=== PATIENT | male | born 1955 | race American Indian/Alaskan Native ===

== ENCOUNTER 2017-06-18 14:39 | Emergency (ER) | payer MEDICAID ==
[2017-06-18 14:52] VITALS: RESP 16
--- NOTE | 2017-06-18 15:25 | EDPHY ---
H & P Stated Complaint: COLD 3 WEEKS, CYST R HIP - Personal History Current Tetanus Diphtheria and Acellular Pertussis (TDAP): Yes Tetanus Vaccine Date: <10 years - Medical/Surgical History Hx Asthma: No Hx Chronic Respiratory Disease: No Hx Diabetes: Yes Hx Cardiac Disease: No Hx Renal Disease: No Hx Cirrhosis: No Hx Alcoholism: No Hx HIV/AIDS: No Hx Splenectomy or Spleen Trauma: No Other PMH: DMII (non-insulin) - Social History Smoking Status: Light smoker HPI/ROS: CHIEF COMPLAINT: Cough HISTORY OF PRESENT ILLNESS: This is a 62-year-old type 2 diabetic who presents with 1 month of cough. He was in [place] when this began. He states that he caught a "head cold ". This believes that his cold is now in his chest. He was treated with a medication while in [place]; is not sure what the medication was, but he did not improve. He states that his throat and mid chest feel "raw ". He has had subjective low-grade fevers. Initially his cough was productive and persistent, it has improved on both counts. He denies angel chest pain. He does not feel short of breath. He has not had a flu shot this year. In addition he notes an area that is tender and swollen on is right hip. He has had what sounds like an abscess there before. He had his wallet in that region while he was traveling. He has not been aware of any drainage from that area. REVIEW OF SYSTEMS: A ten point review of systems was performed and is negative with the exception of the items mentioned in the HPI. Past medical history: Type 2 diabetes Social history: Megan Williamson. He smokes at least 1/2 pack of cigarettes daily. He does not use alcohol. No illicit drugs. He receives his medical care at the . General Appearance: Alert. Vital signs reviewed. Blood pressure 144/81, heart rate 103. Eyes: Pupils equal and round, no conjunctival injection, no discharge. Anicteric. ENT, Mouth: Mucous membranes are moist, no oropharyngeal erythema or edema. Neck: No lymphadenopathy, supple. Respiratory: Lungs are clear to auscultation; no wheezes, rales, or rhonchi. Cardiovascular: Not tachycardic at the time of my exam, regular rate and rhythm ,; no murmur, rub, or gallop. Gastrointestinal: Abdomen is soft and nontender, no masses or organomegaly, bowel sounds normal. Skin: Warm and dry, no rashes on exposed skin, normal color. Back: Nontender to palpation over the thoracolumbar spine. No CVAT. Extremities: No lower extremity edema, no calf tenderness or swelling. There is a 2 cm circular area of erythema and flaking skin over the right hip with mild fluctuance. No purulent drainage. FAROM of right hip. Neurological: Alert and oriented. Moving all four extremities easily and equally. Psychiatric: Normal affect. (Ju Landon) Constitutional: Initial Vital Signs Temperature (C) 37.5 C 06/18/17 14:49 Heart Rate 103 H 06/18/17 14:49 Respiratory Rate 16 06/18/17 14:49 Blood Pressure 144/81 H 06/18/17 14:49 O2 Sat (%) 97 06/18/17 14:49 O2 Delivery Mode Room Air Allergies/Adverse Reactions: No Known Allergies Allergy (Unverified 06/18/17 14:52) Home Medications: Medication Instructions Recorded Glyburide 02/22/16 Metformin HCl 02/22/16 AZITHROMYCIN [Z-PACK] 250 mg PO DAILY #6 tab 06/18/17 Albuterol [Proventil Inhaler HFA 1 - 2 puffs IH Q4 #1 mdi 06/18/17 (*)] Medical Decision Making Procedures: I was asked by Dr. Ju Landon to perform incision and drainage of abscess to right hip. Procedure: Abscess drainage. The patient's abscess was located on the right hip. Risks, benefits, alternatives discussed with the patient and consent obtained. The abscess was incised with a #11 blade and purulent drainage was expressed. Irrigated. The patient tolerated the procedure well. The procedure was performed by myself. Wound culture was sent. (Rosy Lee) ED Course/Re-evaluation: Two-view chest x-ray reviewed by me. There is no infiltrate. No evidence of pneumonia. He is not short of breath or tachycardic or tachypneic and I do not suspect PE, acute coronary syndrome, or pneumothorax. Nothing to suggest influenza. I believe that he has a bronchitis. I plan to discharge him with albuterol meter dose inhaler and a prescription for azithromycin. He is a smoker and smoking cessation has been counseled. Blood pressure was high on arrival, improved at discharge. However I am recommending that he have his blood pressure checked by his primary care physician within the month. Right hip abscess incised and drained by physician administrative assistant data entry. Antibiotics should not be needed for this, as purulence has been drained. (Ju Landon) - Data Points Microbiology Results: MICROBIOLOGY 06/18/17 16:08 Hip - Swab Gram Stain - Final 06/18/17 16:08 Hip - Swab Wound Culture - Final Staphylococcus Lugdunensis Departure - Departure Disposition: Home, Routine, Self-Care Clinical Impression: Bronchitis, Abscess Condition: Good Instructions: Acute Bronchitis (ED), Abscess (ED) Additional Instructions: Use the albuterol inhaler four times daily while you have a cough. This would be a good time to quit smoking. Take the antibiotics daily for the next five days (two pills first dose, then one pill daily until gone.). The infected area on your hip should heal, now that it has been drained. Watch that area closely for any worsening. Follow-up the [facility]. I am referring you to local primary care provider, in case you wish to establish care [facility]. Referrals: Makenna Mark DO [Doctor of Osteopathy] - As per Instructions Prescriptions: Albuterol [Proventil Inhaler HFA (*)] 1 - 2 puffs IH Q4 #1 mdi AZITHROMYCIN [Z-PACK] 250 mg PO DAILY #6 tab
[2017-06-18 17:18] VITALS: BP 127/86; PULSE 87; TEMP 98.7; O2SAT 98
== END 2017-06-18 17:17 | disposition home or self-care (01) ==
PROC: 0H9HXZZ Drainage of Right Upper Leg Skin, External Approach (ICD-10-PCS; principal; 2017-06-18)
DX: J20.9 Acute bronchitis, unspecified (principal); L02.415 Cutaneous abscess of right lower limb; E11.9 Type 2 diabetes mellitus without complications; F17.200 Nicotine dependence, unspecified, uncomplicated; Z79.84 Long term (current) use of oral hypoglycemic drugs

== ENCOUNTER 2017-12-20 20:00 | Inpatient (IN) | payer MEDICAID ==
[2017-12-20] MEDS ORDERED: NS 1,000 ML IV ONE (20:59)
[2017-12-20] MEDS ORDERED: ONDANSETRON 4 MG/2 ML VIAL IVP ONE (21:02)
[2017-12-20] MEDS ORDERED: HYDROmorphONE/DILAUDID 2 MG/ML INJ IVP ONE (21:02)
--- NOTE | 2017-12-20 21:06 | EDPHY ---
H & P Stated Complaint: LUQ abd pain Time Seen by Provider: 12/20/17 20:52 HPI/ROS: CHIEF COMPLAINT: Right upper quadrant pain HISTORY OF PRESENT ILLNESS: The patient is a 62-year-old man who comes to the emergency department complaining of right upper quadrant pain that has been persistent and worsening over the last couple of months. He states that at 1st he thought it was a pulled rib and he had several x-rays that showed normal ribs and lungs. He then had a CT scan of the area 2 weeks ago at the [place] and was told that he had a single gallstone and emphysematous changes. He also reports history of tuberculosis of the liver treated in the . He denies alcohol use for over 20 years. He does not have any history of abdominal surgeries. The pain is not worse with deep inspiration. It is tender to palpation. No fever. REVIEW OF SYSTEMS: Constitutional: denies: chills, fever, recent illness, recent injury EENTM: denies: blurred vision, double vision, nose congestion Respiratory: denies: cough, shortness of breath Cardiac: denies: chest pain, irregular heart rate, lightheadedness, palpitations Gastrointestinal/Abdominal: denies: abdominal pain, diarrhea, nausea, vomiting, blood streaked stools Genitourinary: denies: dysuria, frequency, hematuria, pain Musculoskeletal: denies: joint pain, muscle pain Skin: denies: lesions, rash, jaundice, bruising Neurological: denies: headache, numbness, paresthesia, tingling, dizziness, weakness Hematologic/Lymphatic: denies: blood clots, easy bleeding, easy bruising Immunologic/allergic: denies: HIV/AIDS, transplant EXAM: GENERAL: Well-appearing, well-nourished and in no acute distress. HEAD: Atraumatic, normocephalic. EYES: Pupils equal round and reactive to light, extraocular movements intact, sclera anicteric, conjunctiva are normal. ENT: TMs normal, nares patent, oropharynx clear without exudates. Moist mucous membranes. NECK: Normal range of motion, supple without lymphadenopathy or JVD. LUNGS: Breath sounds clear to auscultation bilaterally and equal. No wheezes rales or rhonchi. HEART: Regular rate and rhythm without murmurs, rubs or gallops. ABDOMEN: Mild epigastric and right upper quadrant tenderness, negative Lee sign BACK: No CVA tenderness, no spinal tenderness, step-offs or deformities EXTREMITIES: Normal range of motion, no pitting or edema. No clubbing or cyanosis. NEUROLOGICAL: Cranial nerves II through XII grossly intact. Normal speech, normal gait. 5/5 strength, normal movement in all extremities, normal sensation PSYCH: Normal mood, normal affect. SKIN: Warm, dry, normal turgor, no visible rashes or lesions. Source: Patient Exam Limitations: No limitations - Personal History Current Tetanus/Diphtheria Vaccine: Yes Current Tetanus Diphtheria and Acellular Pertussis (TDAP): Yes Tetanus Vaccine Date: <10 years - Medical/Surgical History Hx Asthma: No Hx Chronic Respiratory Disease: No Hx Diabetes: Yes Hx Cardiac Disease: No Hx Renal Disease: No Hx Cirrhosis: No Hx Alcoholism: No Hx HIV/AIDS: No Hx Splenectomy or Spleen Trauma: No Other PMH: DMII (non-insulin), TB. - Social History Smoking Status: Light smoker Alcohol Use: Sober Drug Use: None Constitutional: Initial Vital Signs Temperature (C) 36.6 C 12/20/17 20:23 Heart Rate 108 H 12/20/17 20:23 Respiratory Rate 18 12/20/17 20:23 Blood Pressure 151/89 H 12/20/17 20:23 O2 Sat (%) 97 12/20/17 20:23 O2 Delivery Mode Room Air Allergies/Adverse Reactions: No Known Allergies Allergy (Unverified 06/18/17 14:52) Home Medications: Medication Instructions Recorded Glyburide 02/22/16 Metformin HCl 02/22/16 Albuterol [Proventil Inhaler HFA 1 - 2 puffs IH Q4 #1 mdi 06/18/17 (*)] Lisinopril 12/20/17 Medical Decision Making - Diagnostics EKG Interpretation: An EKG obtained and was read and documented in trace view. Please see trace view for full reading and report. Sinus rhythm, no acute ischemic changes Imaging Results: Imaging Impressions Abdomen Ultrasound 12/20/17 20:59 Impression: 1. Enlarged common bile duct measuring 0.8 cm. The distal duct and pancreatic head are obscured. 2. Cholelithiasis. 3. Hepatomegaly. 4. Hepatic steatosis. Dr. Reynoso discussed these findings by telephone with JACKY GMOEZ at 2254 hours on 12/20/2017. Imaging: Discussed imaging studies w/ call out clerk Radiologist ED Course/Re-evaluation: 10:50 p.m. I discussed the case with Dr. Abram Sommers who will plan to operate in the morning to remove the patient's gallbladder because he is symptomatic. We discussed the patient's glucose is well and he recommends admission to the hospitalist service and he will consult. 11:00 p.m. I have paged hospital service. Differential Diagnosis: Partial list of the Differential diagnosis considered include but were not limited to; cholelithiasis, cholecystitis, hyperglycemia and although unlikely based on the history and physical exam, I also considered DKA, gastritis, hepatitis, peptic ulcer disease. - Data Points Laboratory Results: Laboratory Results 12/20/17 21:28 12/20/17 21:28 12/20/17 12/20/17 21:28 21:28 WBC 6.81 10^3/uL 10^3/uL (3.80-9.50) RBC 5.12 10^6/uL 10^6/uL (4.40-6.38) Hgb 15.1 g/dL g/dL (13.7-17.5) Hct 44.5 % % (40.0-51.0) MCV 86.9 fL fL (81.5-99.8) MCH 29.5 pg pg (27.9-34.1) MCHC 33.9 g/dL g/dL (32.4-36.7) RDW 13.7 % % (11.5-15.2) Plt Count 201 10^3/uL 10^3/uL (150-400) MPV 8.5 fL L fL (8.7-11.7) Neut % (Auto) 62.0 % % (39.3-74.2) Lymph % (Auto) 26.3 % % (15.0-45.0) [place] % (Auto) 7.6 % % (4.5-13.0) Eos % (Auto) 3.1 % % (0.6-7.6) Baso % (Auto) 0.7 % % (0.3-1.7) Nucleat RBC Rel Count 0.0 % % (0.0-0.2) Absolute Neuts (auto) 4.22 10^3/uL 10^3/uL (1.70-6.50) Absolute Lymphs (auto) 1.79 10^3/uL 10^3/uL (1.00-3.00) Absolute Monos (auto) 0.52 10^3/uL 10^3/uL (0.30-0.80) Absolute Eos (auto) 0.21 10^3/uL 10^3/uL (0.03-0.40) Absolute Basos (auto) 0.05 10^3/uL 10^3/uL (0.02-0.10) Absolute Nucleated RBC 0.00 10^3/uL 10^3/uL (0-0.01) Immature Gran % 0.3 % % (0.0-1.1) Immature Gran # 0.02 10^3/uL 10^3/uL (0.00-0.10) Sodium 132 mEq/L L mEq/L (135-145) Potassium 4.4 mEq/L mEq/L (3.5-5.2) Chloride 99 mEq/L mEq/L (97-110) Carbon Dioxide 23 mEq/l mEq/l (22-31) Anion Gap 10 mEq/L mEq/L (8-16) BUN 20 mg/dL mg/dL (7-23) Creatinine 0.9 mg/dL mg/dL (0.7-1.3) Estimated GFR > 60 Glucose 393 mg/dL H mg/dL (70-100) Calcium 9.0 mg/dL mg/dL (8.5-10.4) Total Bilirubin 0.5 mg/dL mg/dL (0.1-1.4) Conjugated Bilirubin 0.5 mg/dL mg/dL (0.0-0.5) Unconjugated Bilirubin 0.0 mg/dL mg/dL (0.0-1.1) AST 21 IU/L IU/L (17-59) ALT 37 IU/L IU/L (21-72) Alkaline Phosphatase 121 IU/L IU/L (38-126) Total Protein 7.1 g/dL g/dL (6.3-8.2) Albumin 4.0 g/dL g/dL (3.5-5.0) Lipase 362 IU/L H IU/L (23-300) Medications Given: Discontinued Medications Hydromorphone HCl (Dilaudid) 1 mg IVP EDNOW ONE Stop: 12/20/17 21:03 Last Admin: 12/20/17 21:34 Dose: 1 mg Sodium Chloride (Ns) 1,000 mls @ 0 mls/hr IV EDNOW ONE; Wide Open PRN Reason: Protocol Stop: 12/20/17 21:00 Last Admin: 12/20/17 21:28 Dose: 1,000 mls Insulin Human Regular (Humulin R) 10 unit IVP EDNOW ONE Stop: 12/20/17 22:10 Last Admin: 12/20/17 22:29 Dose: 10 iunits Ondansetron HCl (Zofran) 4 mg IVP EDNOW ONE Stop: 12/20/17 21:03 Last Admin: 12/20/17 21:34 Dose: 4 mg Departure - Departure Disposition: [facility] Acute Clinical Impression: Hyperglycemia Gallstone Qualifiers: Cholecystitis presence: without cholecystitis Biliary obstruction: without biliary obstruction Qualified Code(s): K80.20 - Calculus of gallbladder without cholecystitis without obstruction Condition: Fair
--- NOTE | 2017-12-20 21:28 | CPEKG ---
Heart Rate: 94 RR Interval: 638 P-R Interval: 168 QRSD Interval: 86 QT Interval: 356 QTC Interval: 446 P [place]: 50 QRS [place]: 68 T Wave [place]: 63 EKG Severity - NORMAL ECG - EKG Impression: SINUS RHYTHM Electronically Signed By: Kumar Wahl 20-Dec-2017 21:36:12
[2017-12-20 21:44] LABS: PLATELET COUNT 201 10^3/uL (150-400)
[2017-12-20] MEDS ORDERED: INSULIN REGULAR HUMAN 100 UNIT/ML UNIT IVP ONE (22:09)
[2017-12-20] MEDS ORDERED: ONDANSETRON DISINTEGRATING 4 MG TAB PO PRN (23:08)
[2017-12-20] MEDS ORDERED: ACETAMINOPHEN 325 MG TAB PO PRN (23:08)
[2017-12-20] MEDS ORDERED: ONDANSETRON 4 MG/2 ML VIAL IVP PRN (23:08)
[2017-12-20] MEDS ORDERED: D50W 25 GM/50 ML VIAL IVP PRN (23:10)
[2017-12-21] MEDS ORDERED: cefOXitin SODIUM 2 GM in STERILE WATER INJ 21 ML IV ONE ×2 (00:25→14:38)
--- NOTE | 2017-12-21 00:25 | SOAPPROG ---
SOAP Progress Note Assessment/Plan: Assessment: 62 male with ruq pain and large stones on us/ afebrile/ lfts ok nonicteric chest clear/ cor rr abd soft, mildly tender ruq extrem ok impr biliary colic phx liver bx and TB/ dm nka meds metformin Plan:lap audrey in am/ risks and options fully discussed 12/21/17 00:22 Objective: Vital Signs Temp Pulse Resp BP Pulse Ox 36.6 C 82 20 101/68 94 12/20/17 20:23 12/21/17 00:00 12/21/17 00:00 12/21/17 00:00 12/21/17 00:00 12/19/17 12/20/17 12/21/17 05:59 05:59 05:59 Intake Total 1000 Balance 1000 ICD10 Worksheet Patient Problems: Problems Problem Status Onset Gallstone Acute Hyperglycemia Acute
[2017-12-21] MEDS: D5W 1/2 NS W/ 20 KCl/L 1,000 ML IV SCH ×2 (01:14→12:52)
--- NOTE | 2017-12-21 01:14 | PDGENHP ---
History and Physical - Chief Complaint RUQ pain - History of Present Illness 62 yo M w/ NIDDM and HTN presents with abdominal pain. He has had RUQ for three months. U/S in ED revealed large gallstone. His BG was elevated so he will be admitted to hospitalist service for BG control prior to lap audrey in the morning. He denies any complaints to me after pain medications. His last A1c was about 10 and his usual BG at home runs in the 180-210 range. He manages his DM with oral medications only. History Information - Allergies/Home Medication List Allergies/Adverse Reactions: No Known Allergies Allergy (Unverified 06/18/17 14:52) Home Medications: Glyburide 02/22/16 [Last Taken Unknown] Metformin HCl 02/22/16 [Last Taken Unknown] Lisinopril 12/20/17 [Last Taken Unknown] I have personally reviewed and updated: family history, medical history - Past Medical History diabetes type 2, hypertension - Family History Additional family history: Gallbladder disease - Social History Smoking Status: Light smoker Alcohol Use: Sober Drug Use: None Review of Systems Review of Systems: ROS: 10pt was reviewed & negative except for what was stated in HPI & below Physical Exam Physical Exam: Temp Pulse Resp BP Pulse Ox 36.4 C 85 12 119/72 95 12/21/17 00:28 12/21/17 00:28 12/21/17 00:28 12/21/17 00:28 12/21/17 00:28 Constitutional: no apparent distress, not in pain Eyes: PERRL, EOMI Ears, Nose, Mouth, Throat: moist mucous membranes, no oral mucosal ulcers Cardiovascular: regular rate and rhythym, no murmur, rub, or gallop Respiratory: no respiratory distress, no rales or rhonchi Gastrointestinal: normoactive bowel sounds, tenderness (Mild, RUQ), No cali's sign Skin: warm, normal color Musculoskeletal: full muscle strength, no muscle tenderness Neurologic: AAOx3, CN II-XII Intact Psychiatric: interacting appropriately, not anxious Lab Data & Imaging Review 12/20/17 21:28 12/20/17 21:28 WBC 6.81 10^3/uL (3.80-9.50) 12/20/17 21:28 RBC 5.12 10^6/uL (4.40-6.38) 12/20/17 21: Hgb 15.1 g/dL (13.7-17.5) 12/20/17 21: Hct 44.5 % (40.0-51.0) 12/20/17 21: MCV 86.9 fL (81.5-99.8) 12/20/17 21: MCH 29.5 pg (27.9-34.1) 12/20/17 21: MCHC 33.9 g/dL (32.4-36.7) 12/20/17 21: RDW 13.7 % (11.5-15.2) 12/20/17: Plt Count 201 10^3/uL (150-400) 12/20/17: MPV 8.5 fL (8.7-11.7) L 12/20/17: Neut % (Auto) 62.0 % (39.3-74.2) 12/20/17 21: Lymph % (Auto) 26.3 % (15.0-45.0) 12/20/17 21: [place] % (Auto) 7.6 % (4.5-13.0) 12/20/17: Eos % (Auto) 3.1 % (0.6-7.6) 12/20/17: Baso % (Auto) 0.7 % (0.3-1.7) 12/20/17: Nucleat RBC Rel Count 0.0 % (0.0-0.2) 12/20/17: Absolute Neuts (auto) 4.22 10^3/uL (1.70-6.50) 12/20/17 21: Absolute Lymphs (auto) 1.79 10^3/uL (1.00-3.00) 12/20/17: Absolute Monos (auto) 0.52 10^3/uL (0.30-0.80) 12/20/17 21: Absolute Eos (auto) 0.21 10^3/uL (0.03-0.40) 12/20/17 21: Absolute Basos (auto) 0.05 10^3/uL (0.02-0.10) 12/20/17 21:28 Absolute Nucleated RBC 0.00 10^3/uL (0-0.01) 12/20/17 21:28 Immature Gran % 0.3 % (0.0-1.1) 12/20/17 21:28 Immature Gran # 0.02 10^3/uL (0.00-0.10) 12/20/17 21:28 Sodium 132 mEq/L (135-145) L 12/20/17 21:28 Potassium 4.4 mEq/L (3.5-5.2) 12/20/17 21:28 Chloride 99 mEq/L (97-110) 12/20/17 21:28 Carbon Dioxide 23 mEq/l (22-31) 12/20/17 21:28 Anion Gap 10 mEq/L (8-16) 12/20/17 21:28 BUN 20 mg/dL (7-23) 12/20/17 21:28 Creatinine 0.9 mg/dL (0.7-1.3) 12/20/17 21:28 Estimated GFR > 60 12/20/17 21:28 Glucose 393 mg/dL (70-100) H 12/20/17 21:28 POC Glucose 137 mg/dL (70-100) H 12/21/17 00:26 Calcium 9.0 mg/dL (8.5-10.4) 12/20/17 21:28 Total Bilirubin 0.5 mg/dL (0.1-1.4) 12/20/17 21:28 Conjugated Bilirubin 0.5 mg/dL (0.0-0.5) 12/20/17 21:28 Unconjugated Bilirubin 0.0 mg/dL (0.0-1.1) 12/20/17 21:28 AST 21 IU/L (17-59) 12/20/17 21:28 ALT 37 IU/L (21-72) 12/20/17 21:28 Alkaline Phosphatase 121 IU/L (38-126) 12/20/17 21:28 Total Protein 7.1 g/dL (6.3-8.2) 12/20/17 21:28 Albumin 4.0 g/dL (3.5-5.0) 12/20/17 21:28 Lipase 362 IU/L (23-300) H 12/20/17 21:28 Imaging Review: Imaging Impressions Abdomen Ultrasound 12/20/17 20:59 Impression: 1. Enlarged common bile duct measuring 0.8 cm. The distal duct and pancreatic head are obscured. 2. Cholelithiasis. 3. Hepatomegaly. 4. Hepatic steatosis. Dr. Reynoso discussed these findings by telephone with JACKY GOMEZ at 2254 hours on 12/20/2017. Assessment & Plan Assessment: 62 yo M w/ DM and HTN presents with RUQ pain found to have cholelithiasis. Plan: 1. RUQ pain - Most likely 2/2 cholelithiasis. LFTs unremarkable and patient not displaying any signs of active infection currently (Afebrile w/ normal WBC). - Plan for laparoscopic cholecystectomy in the morning - NPO @ [place] - Surgery service following 2. NIDDM - Uncontrolled in the ED after patient drank a Dr. Bartlett. BG now WNL after 10 units of regular insulin. On metformin and glyburide as outpatient. - Continue standard SSI while inpatient 3. HTN - Continue home medications Diet - NPO @ [place] Code - Full Ppx - SCDs Dispo - Admit under observation status
[2017-12-21] MEDS: oxyCODONE IR 5 MG TAB PO PRN ×4 (04:53→21:17)
[2017-12-21 05:27] LABS: PLATELET COUNT 195 10^3/uL (150-400)
[2017-12-21] MEDS: INSULIN LISPRO 100 UNIT/ML SC SCH ×3 (08:55→18:05)
--- NOTE | 2017-12-21 09:44 | HOSPPROG ---
Hospitalist Progress Note Assessment/Plan: 62 yo M w dm, symptomatic cholelithiasis cholelithiasis: lap audrey today dm: orals on hold lispro ss a1c pending pain: continue pain meds, including IV tobacco: counselled cessation nicotine patch dispo: inpt Subjective: afebrile. case d/w Tory Isidro, gen surgery PA Objective: Vital Signs Temp Pulse Resp BP Pulse Ox 36.6 C 75 18 150/86 H 97 12/21/17 08:00 12/21/17 08:00 12/21/17 08:00 12/21/17 08:00 12/21/17 08:00 Laboratory Results 12/21/17 04:47 12/21/17 04:47 12/20/17 12/21/17 12/22/17 05:59 05:59 05:59 Intake Total 1515 Balance 1515 - Physical Exam Constitutional: no apparent distress, appears nourished Eyes: PERRL, anicteric sclera Ears, Nose, Mouth, Throat: moist mucous membranes, hearing normal Cardiovascular: regular rate and rhythym, no murmur, rub, or gallop Respiratory: no respiratory distress, no rales or rhonchi Gastrointestinal: normoactive bowel sounds, soft, non-tender abdomen, No cali' s sign Genitourinary: No garrison in urethra Skin: warm, normal color Musculoskeletal: full muscle strength, no muscle tenderness Neurologic: AAOx3, sensation intact bilaterally Psychiatric: interacting appropriately, not anxious Lymph, Heme, Immunologic: no cervical LAD ICD10 Worksheet Patient Problems: Problems Problem Status Onset Gallstone Acute Hyperglycemia Acute
[2017-12-21] MEDS: NICOTINE 14 MG/24 HR PATCH TD SCH (10:04)
--- NOTE | 2017-12-21 10:51 | SOAPPROG ---
SOAP Progress Note Assessment/Plan: Assessment/Plan: 62 Y M DM, +tobacco, cholelithiasis. Lap audrey today. Risks and options discussed. Appreciate medicine input--pt seen with hospitalist. Will ad nicotine patch. Continue NPO. Hold chemical VTE ppx. Pt consented--in chart. S: pain controlled with pain meds. O: alert, nad ctab rrr abd soft, +ruq tenderness 12/21/17 10:49 Objective: Vital Signs Temp Pulse Resp BP Pulse Ox 36.6 C 75 18 150/86 H 97 12/21/17 08:00 12/21/17 08:00 12/21/17 08:00 12/21/17 08:00 12/21/17 08:00 Laboratory Results 12/21/17 04:47 12/21/17 04:47 12/20/17 12/21/17 12/22/17 05:59 05:59 05:59 Intake Total 1515 Balance 1515 ICD10 Worksheet Patient Problems: Problems Problem Status Onset Gallstone Acute Hyperglycemia Acute
--- NOTE | 2017-12-21 10:56 | ASMTCASEMG ---
Living Arrangements What is your living Answers: Alone arrangement? Who do you live with? Type Of Residence What kind of residence do Answers: House you live in? Discharge Plan Comments Coordination Status Comments Notes: Pt is a 62 y/o man admitted for gallstone and hyperglycemia. Pt will most likely d/c independent when medically stable. No therapies ordered at this time. CM available for changes. Plan: Independent Date Signed: 12/21/2017 10:55 AM Electronically Signed By:ONEL Ferrell
[2017-12-21] MEDS ORDERED: LR 1,000 ML IV SCH (13:30)
[2017-12-21] MEDS ORDERED: ceFAZolin 1 GM/5 ML SYR ONE (13:33)
[2017-12-21] MEDS ORDERED: BUPIVACAINE 0.5% 30 ML SDV ONE (13:33)
[2017-12-21] MEDS ORDERED: HEPARIN 1000 UNIT/1 ML MDV ONE (13:34)
--- NOTE | 2017-12-21 13:38 | PDMN ---
Medical Necessity Medical necessity: change to IP; los>2mn for symptomatic cholelithiasis w/ continued pain; requires lap audrey and IV pain medication,. elevated glucose; comorbid HTN, NIDDM; per order and progress note 12/21/17 0996
[2017-12-21] MEDS ORDERED: MIDAZOLAM 2 MG/2 ML VIAL ONE (14:31)
[2017-12-21] MEDS ORDERED: PROPOFOL 200 MG/20 ML VIAL ONE (14:34)
[2017-12-21] MEDS ORDERED: fentaNYL 100 MCG/2 ML INJ ONE ×3 (14:34→15:13)
[2017-12-21] MEDS ORDERED: ROCURONIUM 50 MG/5 ML VIAL ONE (14:35)
[2017-12-21] MEDS ORDERED: ONDANSETRON 4 MG/2 ML VIAL ONE (14:35)
[2017-12-21] MEDS ORDERED: KETOROLAC 30 MG/1 ML SDV ONE (14:35)
[2017-12-21] MEDS ORDERED: SUGAMMADEX SODIUM 200 MG/2 ML VIAL IVP ONE (14:35)
[2017-12-21] MEDS ORDERED: MIDAZOLAM 2 MG/2 ML VIAL IVP ONE (14:56)
[2017-12-21] MEDS ORDERED: ceFAZolin 1 GM VIAL ONE ×2 (14:59)
--- NOTE | 2017-12-21 15:03 | PDANEPAE ---
ANE History of Present Illness cholelithiasis ANE Past Medical History - Cardiovascular History Hx Hypertension: Yes Hx Arrhythmias: No Hx Chest Pain: No Hx Coronary Artery / Peripheral Vascular Disease: No Hx CHF / Valvular Disease: No Hx Palpitations: No - Pulmonary History Hx COPD: No Hx Asthma/Reactive Airway Disease: No Hx Recent Upper Respiratory Infection: No Hx Oxygen in Use at Home: No Hx Sleep Apnea: No Sleep Apnea Screening Result - Last Documented: Positive - Endocrine History Hx Diabetes: Yes Hypothyroid: No Hyperthyroid: No Obesity: no ANE Review of Systems Review of Systems: - Exercise capacity Exercise capacity: >=4 METS ANE Patient History - Allergies Allergies/Adverse Reactions: No Known Allergies Allergy (Unverified 06/18/17 14:52) - Home Medications Home medications: home medication list seen and reviewed Home Medications: metFORMIN HCL [Glucophage 1000 mg] 1,000 mg PO BIDMEAL 02/22/16 [Last Taken 3 Days Ago ~12/18/17] Cholecalciferol Vit D3 [Vitamin D3 (*)] 1,000 units PO DAILY 12/21/17 [Last Taken Unknown] Gabapentin [Neurontin 300 MG (*)] 300 mg PO TID 12/21/17 [Last Taken 12/20/17] - NPO status NPO Since - Liquids (Date): 12/21/17 NPO Since - Liquids (Time): 01:30 NPO Since - Solids (Date): 12/20/17 NPO Since - Solids (Time): 18:00 - Anes Hx Anes Hx: no prior problems - Smoking Hx Smoking Status: Light smoker - Alcohol Use Alcohol Use: Sober ANE Labs/Vital Signs - Labs Result Diagrams: 12/21/17 04:47 12/21/17 04:47 - Vital Signs Blood Pressure: 127/81 Heart Rate: 84 Respiratory Rate: 18 O2 Sat (%): 94 Height: 182.88 cm Weight: 70.6 kg ANE Physical Exam - Airway Neck exam: FROM Mallampati Score: Class 2 Mouth exam: dentures - Pulmonary Pulmonary: no respiratory distress - Cardiovascular Cardiovascular: regular rate and rhythym - ASA Status ASA Status: II ANE Anesthesia Plan Anesthesia Plan: general endotracheal anesthesia Urgent/Emergent Case: Roro jay completed preop but documented later for safe timely pt care
[2017-12-21] MEDS ORDERED: HYDROCODONE/APAP 5/325 TAB PO PRN (15:04)
[2017-12-21] MEDS ORDERED: ALBUTEROL 3 ML DEYVIAL IH PRN (15:04)
[2017-12-21] MEDS ORDERED: epHEDrine SULFATE 10 MG/ML SYR IVP PRN (15:04)
[2017-12-21] MEDS ORDERED: LABETALOL HCL 5 MG/ML 20 ML MDV IVP PRN (15:04)
[2017-12-21] MEDS ORDERED: oxyCODONE IR 5 MG TAB PO PRN (15:04)
[2017-12-21] MEDS ORDERED: HYDROmorphONE/DILAUDID 2 MG/ML INJ IVP PRN (15:04)
[2017-12-21] MEDS ORDERED: fentaNYL 100 MCG/2 ML INJ IVP PRN (15:04)
[2017-12-21] MEDS ORDERED: NALOXONE HCL 0.4 MG/ML INJ IVP PRN (15:04)
[2017-12-21] MEDS ORDERED: PHENYLEPHRINE HCL 100 MCG/ML SYR IVP PRN (15:04)
[2017-12-21] MEDS ORDERED: PROMETHAZINE HCL 25 MG/ML INJ IVP PRN (15:04)
[2017-12-21] MEDS ORDERED: ACETAMINOPHEN 500 MG TAB PO PRN (15:04)
[2017-12-21] MEDS ORDERED: ONDANSETRON 4 MG/2 ML VIAL IVP PRN (15:04)
--- NOTE | 2017-12-21 15:06 | POSTANESTH ---
Post Anesthetic Evaluation Cardiovascular Status: Normal, Stable Respiratory Status: Normal, Stable Level of Consciousness/Mental Status: Can Participate in Eval Pain Control: Adequate, Prn Tx Ordered Nausea/Vomiting Control: Adequate, Prn Tx Ordered Complications Possibly Related to Anesthesia: None Noted
[2017-12-21] MEDS ORDERED: LABETALOL HCL 5 MG/ML 20 ML MDV ONE (15:16)
[2017-12-21] MEDS ORDERED: HYDROmorphONE/DILAUDID 1 MG/ML INJ IVP PRN (15:44)
--- NOTE | 2017-12-21 16:52 | GOP ---
[f rep st] OPERATIVE REPORT DATE OF OPERATION: 12/21/2017 SURGEON: Curly Sommers MD SILVER LAP MACHINE TENDER: ANUPAM Ellis. ANESTHESIOLOGIST: Dr. Markham. PREOPERATIVE DIAGNOSIS: Symptomatic gallstones. POSTOPERATIVE DIAGNOSIS: Symptomatic gallstones. PROCEDURE PERFORMED: Laparoscopic cholecystectomy. FINDINGS: Patient had large gallstones with obstruction of the outlet of the gallbladder, and small ducts. He had a hydrops of the gallbladder, some minor adhesions to the gallbladder. DESCRIPTION OF PROCEDURE: The patient was taken to the operating room where he received satisfactory general endotracheal anesthesia. He was prepped and draped in usual sterile fashion in the supine p osition. An infraumbilical incision was made. A Veress needle inserted. Pneumoperitoneum was estab lished. Trocar was introduced. Laparoscope introduced. Good visualization was obtained. Two other trocars were placed in the upper abdomen under direct vision. The gallbladder was elevated up. It was quite thickened and hard to grasp. The adhesions were taken down. The cystic triangle was caref ully exposed. The cystic duct and cystic artery were multiply hemoclipped after being carefully diss ected and a clear view was obtained. They were multiple hemoclipped and divided with care to avoid i njury to the common bile duct. The peritoneum of the gallbladder was incised the gallbladder dissect ed free from the bed and hepatic fossa, extracted through the upper midline port site. Hemostasis wa s thoroughly obtained. Some Agnieszka powder was placed in the gallbladder bed for hemostatic effect. The wound was irrigated. Trocars removed under direct vision. Trocar sites were closed with 0 Vicry l for the fascia, 4-0 Monocryl subcuticular stitch for the skin. All layers infiltrated with 0.5% Ma rcaine. Blood loss negligible. He was taken to recovery room in good condition. /[id number]/MODL
[2017-12-21] MEDS: GABAPENTIN 300 MG CAP PO SCH ×2 (18:07→20:30)
[2017-12-22] MEDS: oxyCODONE IR 5 MG TAB PO PRN ×5 (00:21→14:45)
--- NOTE | 2017-12-22 09:48 | SOAPPROG ---
SOAP Progress Note Assessment/Plan: Assessment/Plan: 62 Y M DM, +tobacco, cholelithiasis. s/p lap audrey, POD#1. If tolerates diet and pain gets under control, then no CI to d/c from a surgical standpoint. Gallbladder was inflamed with stones, but don't see need for further abx as an outpatient. Epigastric incisional pain to be expected-- larger incision with more manipulation, where the gallbladder is taken out from. No sign of dehiscence on exam. Can re-examine if continues to have pain after pain meds given. Will add info to d/c plan and continue to follow. S: hasn't had pain meds yet this am and had a lot of pain at epigastric incision when getting oob. Taking meds now. Says he has not eaten yet. Passing gas. No N/V. O: alert, nad no jaundice no wob rrr abd soft, +incisional tenderness. no incisional bulges but not able to tolerate po rian maneuvers and incisional pressure this am 12/22/17 09:37 Objective: Vital Signs Temp Pulse Resp BP Pulse Ox 36.6 C 81 18 157/99 H 99 12/22/17 07:45 12/22/17 07:45 12/22/17 07:45 12/22/17 07:45 12/22/17 07:45 Laboratory Results 12/21/17 04:47 12/21/17 04:47 12/21/17 12/22/17 12/23/17 05:59 05:59 05:59 Intake Total 1515 2650 Output Total 1035 Balance 1515 1615 ICD10 Worksheet Patient Problems: Problems Problem Status Onset Gallstone Acute Hyperglycemia Acute
[2017-12-22] MEDS: NICOTINE 14 MG/24 HR PATCH TD SCH (10:50)
[2017-12-22] MEDS: GABAPENTIN 300 MG CAP PO SCH ×2 (11:20→15:51)
--- NOTE | 2017-12-22 11:34 | HOSPPROG ---
Hospitalist Progress Note Assessment/Plan: 62 yo M w dm, symptomatic cholelithiasis cholelithiasis: lap audrey yesterday tolerating orals dm: orals on hold lispro ss a1c pending pain: continue pain meds, including IV tobacco: counselled cessation nicotine patch dispo: home if pain controlled Subjective: c/o abd wall pain Objective: Vital Signs Temp Pulse Resp BP Pulse Ox 36.6 C 87 16 128/72 H 95 12/22/17 11:21 12/22/17 11:21 12/22/17 11:21 12/22/17 11:21 12/22/17 11:21 Laboratory Results 12/21/17 04:47 12/21/17 04:47 12/21/17 12/22/17 12/23/17 05:59 05:59 05:59 Intake Total 1515 2650 Output Total 1035 Balance 1515 1615 - Physical Exam Constitutional: no apparent distress, appears nourished Eyes: PERRL, anicteric sclera Ears, Nose, Mouth, Throat: moist mucous membranes, hearing normal Cardiovascular: regular rate and rhythym, no murmur, rub, or gallop Respiratory: no respiratory distress, no rales or rhonchi Gastrointestinal: normoactive bowel sounds, soft, non-tender abdomen Genitourinary: no bladder tenderness, No garrison in urethra Skin: warm, normal color Musculoskeletal: full muscle strength Neurologic: AAOx3 ICD10 Worksheet Patient Problems: Problems Problem Status Onset Gallstone Acute Hyperglycemia Acute
[2017-12-22] MEDS: INSULIN LISPRO 100 UNIT/ML SC SCH ×2 (12:32→13:10)
[2017-12-22 15:21] VITALS: BP 151/84
[2017-12-22] MEDS ORDERED: HYDROmorphone HCL/NS 0.5 MG/ML SYR IVP PRN (16:00)
--- NOTE | 2017-12-23 03:33 | GDS ---
[f rep st] DISCHARGE SUMMARY DISCHARGE DIAGNOSES: 1. Poorly-controlled diabetes. 2. Hydropic gallbladder with symptomatic cholelithiasis, status post surgery. 3. Smoking, tobacco use. HOSPITAL COURSE: Please see admission history and physical by Dr. cR Dan. The patient prese nted with abdominal pain. He had abdominal ultrasound showing gallstones. He is markedly hyperglyce home with blood sugars in the 300s, which responded well to insulin therapy. Hemoglobin A1c returned at 11. The patient went to the operating room with uncomplicated gallbladder removal. He is dischar [facility] home. /[id number]/MODL
== END 2017-12-22 18:12 | disposition home or self-care (01) | DRG 263 ==
LOC: OBSVTOIN 23:04 → F3E 12-21 00:17
PROVIDERS: ADMIT Student in an Organized Health Care Education/Training Program; ATTEND Student in an Organized Health Care Education/Training Program
PROC: 0FT44ZZ Resection of Gallbladder, Percutaneous Endoscopic Approach (ICD-10-PCS; principal; 2017-12-21 14:45)
DX: K80.10 Calculus of gallbladder with chronic cholecystitis without obstruction (principal); E11.65 Type 2 diabetes mellitus with hyperglycemia; I10 Essential (primary) hypertension; Z72.0 Tobacco use
CPT/HCPCS: 96374; G0378; J0690; J0694; J1170; J1815; J1885; J2250; J2405; J2704; J3010

== ENCOUNTER 2018-01-17 13:20 | Emergency (ER) | payer MEDICAID ==
--- NOTE | 2018-01-17 14:13 | EDPHY ---
H & P Stated Complaint: Abd Pain Post Op Source: Patient Exam Limitations: No limitations - Personal History Current Tetanus Diphtheria and Acellular Pertussis (TDAP): Yes Tetanus Vaccine Date: <10 years - Medical/Surgical History Hx Asthma: No Hx Chronic Respiratory Disease: No Hx Diabetes: Yes Hx Cardiac Disease: No Hx Renal Disease: No Hx Cirrhosis: No Hx Alcoholism: No Hx HIV/AIDS: No Hx Splenectomy or Spleen Trauma: No Other PMH: DMII (non-insulin), TB. - Social History Smoking Status: Light smoker Time Seen by Provider: 01/17/18 14:13 HPI/ROS: CHIEF COMPLAINT: Chronic right-sided abdominal pain HISTORY OF PRESENT ILLNESS: The patient presents the ED with complaints of ongoing chronic right-sided abdominal pain. The patient is approximately 1 month status post cholecystectomy for symptomatic cholelithiasis. Patient had been on narcotic pain medications which he stop taking 1 week ago. Patient complains of pain over his abdominal incisions, lower ribs and back. The patient denies pleuritic chest pain. He denies any nausea, vomiting or diarrhea. The pain is worsened with eating. The patient did see his surgeon for follow-up. He was advised to take Tylenol for management of his symptoms. REVIEW OF SYSTEMS: A comprehensive 10 point review of systems is otherwise negative aside from elements mentioned in the history of present illness. (Devon Esqueda) - Physical Exam Exam: General Appearance: Alert, no distress Eyes: Pupils equal and round no pallor or injection ENT, Mouth: Mucous membranes moist Respiratory: There are no retractions, lungs are clear to auscultation, tenderness to palpation lower rib cage Cardiovascular: Regular rate and rhythm Gastrointestinal: Surgical incisions are clean dry and intact, minimal tenderness to palpation noted in the epigastrium Neurological: A&O, normal motor function, normal sensory exam, normal cranial nerves Skin: Warm and dry, no rashes Musculoskeletal: Neck is supple nontender Extremities: symmetrical, full range of motion Psychiatric: Patient is oriented X 3, there is no agitation (Devon Esqueda) Constitutional: Initial Vital Signs Temperature (C) 36.6 C 01/17/18 13:21 Heart Rate 115 H 01/17/18 13:21 Respiratory Rate 18 01/17/18 13:21 Blood Pressure 126/83 H 01/17/18 13:21 O2 Sat (%) 99 01/17/18 13:21 O2 Delivery Mode Room Air Allergies/Adverse Reactions: No Known Allergies Allergy (Unverified 06/18/17 14:52) Home Medications: Medication Instructions Recorded metFORMIN HCL [Glucophage 1000 mg] 1,000 mg PO BIDMEAL 02/22/16 Cholecalciferol Vit D3 [Vitamin D3 1,000 units PO DAILY 12/21/17 (*)] Gabapentin [Neurontin 300 MG (*)] 300 mg PO TID 12/21/17 Ondansetron Odt [Zofran Odt 4 mg 4 mg PO Q4HRS PRN #20 tab 12/22/17 (*)] oxyCODONE IR [Oxycodone Ir (*)] 5 - 10 mg PO Q3HRS PRN #20 tab 12/22/17 Hydrocodone/APAP 5/325 [[place] 1 - 2 tab PO Q4H PRN #10 tab 01/17/18 5/325] Medical Decision Making - Diagnostics Imaging Results: Imaging Impressions Abdomen CT 01/17/18 15:17 Impression: 1. Postcholecystectomy with no evidence of postoperative complication. 2. No CT evidence of appendicitis, abscess or bowel obstruction. 3. Mild constipation. Findings were communicated by telephone with Dr. Deleon at 01/17/2018 16:31 ED Course/Re-evaluation: The patient presents to the ED with ongoing pain following cholecystectomy. The patient has both pain in his right upper quadrant as well as right lower rib pain. The patient was noted to be slightly tachycardic. I find his abdominal examination to be benign. Given the patient's recent surgery and tachycardia a D-dimer was checked to evaluate for pulmonary embolism. D-dimer was elevated at 0.64. A CT pulmonary angiogram has been ordered. The patient is noted to have an indeterminately elevated lipase. A CT scan of the abdomen pelvis is also been ordered given his postoperative pain. The remainder of the patient's liver function tests are within normal limits. The patient will be evaluated for pulmonary embolism and intra-abdominal complications from his cholecystectomy. The patient will be turned over to Dr. Bledsoe at shift change pending the CT studies. (Devon Esqueda) 1704: CT scan angiogram of the chest for PE as well as CT scan abdomen pelvis with IV contrast for abdominal pain are unremarkable for acute pathology. Negative for PE or acute inflammatory process in the abdomen. 1705: I did go re-evaluate the patient is resting comfortably. I agreed to give him very limited supply of [place]. I did discussed return precautions with him he understands return emergency room if develops worsening abdominal pain fever vomiting. Blood work and CT scans have been reviewed. He is resting comfortably. He is comfortable going home. Discussed return precautions with him. He understands return emergency room if develops worsening abdominal pain fever vomiting. Limited supply of [place]. (Moustapha Bledsoe) Differential Diagnosis: Differential diagnosis considered includes pulmonary embolism, choledocholithiasis, gastroenteritis, appendicitis, pneumonia, rib fracture ( Devon Esqueda) - Data Points Laboratory Results: Laboratory Results 01/17/18 14:30 01/17/18 14:30 01/17/18 01/17/18 01/17/18 14:40 14:30 14:30 WBC 6.96 10^3/uL 10^3/uL (3.80-9.50) RBC 5.05 10^6/uL 10^6/uL (4.40-6.38) Hgb 14.9 g/dL g/dL (13.7-17.5) POC Hgb 14.3 gm/dL gm/dL (13.7-17.5) Hct 43.7 % % (40.0-51.0) POC Hct 42 % % (40-51) MCV 86.5 fL fL (81.5-99.8) MCH 29.5 pg pg (27.9-34.1) MCHC 34.1 g/dL g/dL (32.4-36.7) RDW 13.4 % % (11.5-15.2) Plt Count 227 10^3/uL 10^3/uL (150-400) MPV 8.4 fL L fL (8.7-11.7) Neut % (Auto) 50.5 % % (39.3-74.2) Lymph % (Auto) 35.1 % % (15.0-45.0) [place] % (Auto) 7.9 % % (4.5-13.0) Eos % (Auto) 5.2 % % (0.6-7.6) Baso % (Auto) 1.0 % % (0.3-1.7) Nucleat RBC Rel Count 0.0 % % (0.0-0.2) Absolute Neuts (auto) 3.52 10^3/uL 10^3/uL (1.70-6.50) Absolute Lymphs (auto) 2.44 10^3/uL 10^3/uL (1.00-3.00) Absolute Monos (auto) 0.55 10^3/uL 10^3/uL (0.30-0.80) Absolute Eos (auto) 0.36 10^3/uL 10^3/uL (0.03-0.40) Absolute Basos (auto) 0.07 10^3/uL 10^3/uL (0.02-0.10) Absolute Nucleated RBC 0.00 10^3/uL 10^3/uL (0-0.01) Immature Gran % 0.3 % % (0.0-1.1) Immature Gran # 0.02 10^3/uL 10^3/uL (0.00-0.10) D-Dimer POC Sodium 138 mEq/L mEq/L (135-145) Sodium 138 mEq/L mEq/L (135-145) POC Potassium 3.9 mEq/L mEq/L (3.3-5.0) Potassium 4.3 mEq/L mEq/L (3.5-5.2) POC Chloride 104 mEq/L mEq/L (97-110) Chloride 102 mEq/L mEq/L (97-110) Carbon Dioxide 21 mEq/l L mEq/l (22-31) Anion Gap 15 mEq/L mEq/L (8-16) POC BUN 23 mg/dL mg/dL (7-23) BUN 23 mg/dL mg/dL (7-23) Creatinine 0.9 mg/dL mg/dL (0.7-1.3) POC Creatinine 0.9 mg/dL mg/dL (0.7-1.3) Estimated GFR > 60 Glucose 124 mg/dL H mg/dL (70-100) POC Glucose 128 mg/dL H mg/dL (70-100) Calcium 9.8 mg/dL mg/dL (8.5-10.4) Total Bilirubin 0.5 mg/dL mg/dL (0.1-1.4) Conjugated Bilirubin 0.5 mg/dL mg/dL (0.0-0.5) Unconjugated Bilirubin 0.0 mg/dL mg/dL (0.0-1.1) AST 23 IU/L IU/L (17-59) ALT 33 IU/L IU/L (21-72) Alkaline Phosphatase 141 IU/L H IU/L (38-126) Total Protein 7.6 g/dL g/dL (6.3-8.2) Albumin 4.2 g/dL g/dL (3.5-5.0) Lipase 411 IU/L H IU/L (23-300) 01/17/18 14:14 WBC RBC Hgb POC Hgb Hct POC Hct MCV MCH MCHC RDW Plt Count MPV Neut % (Auto) Lymph % (Auto) [place] % (Auto) Eos % (Auto) Baso % (Auto) Nucleat RBC Rel Count Absolute Neuts (auto) Absolute Lymphs (auto) Absolute Monos (auto) Absolute Eos (auto) Absolute Basos (auto) Absolute Nucleated RBC Immature Gran % Immature Gran # D-Dimer 0.64 ug/mLFEU H ug/mLFEU (0.00-0.50) POC Sodium Sodium POC Potassium Potassium POC Chloride Chloride Carbon Dioxide Anion Gap POC BUN BUN Creatinine POC Creatinine Estimated GFR Glucose POC Glucose Calcium Total Bilirubin Conjugated Bilirubin Unconjugated Bilirubin AST ALT Alkaline Phosphatase Total Protein Albumin Lipase Medications Given: Discontinued Medications Acetaminophen (Tylenol) 1,000 mg PO EDNOW ONE Stop: 01/17/18 16:35 Last Admin: 01/17/18 16:41 Dose: 1,000 mg Point of Care Test Results: 01/17/18 14:40 POC Sodium 138 POC Potassium 3.9 POC Chloride 104 POC BUN 23 POC Creatinine 0.9 POC Glucose 128 H Departure - Departure Disposition: Home, Routine, Self-Care Clinical Impression: Abdominal pain Qualifiers: Abdominal location: unspecified location Qualified Code(s): R10.9 - Unspecified abdominal pain Condition: Good Instructions: Acute Abdominal Pain (ED) Additional Instructions: 1. Return emergency room if you have worsening abdominal pain fever vomiting. 2. Please follow up with her primary care doctor 3. Limited supply of [place]. Referrals: NONE *PRIMARY CARE P,. [Primary Care Provider] - As per Instructions Prescriptions: Hydrocodone/APAP 5/325 [[place] 5/325] 1 - 2 tab PO Q4H PRN #10 tab PRN Reason: Pain, Moderate
[2018-01-17 14:44] LABS: PLATELET COUNT 227 10^3/uL (150-400)
[2018-01-17] MEDS ORDERED: IOPAMIDOL (ISOVUE 370) 100 ML BTL IV ONE (15:22)
[2018-01-17] MEDS ORDERED: ACETAMINOPHEN 500 MG TAB PO ONE (16:34)
[2018-01-17 17:37] VITALS: BP 124/83
== END 2018-01-17 17:38 | disposition home or self-care (01) ==
DX: G89.18 Other acute postprocedural pain (principal); R10.13 Epigastric pain; E11.9 Type 2 diabetes mellitus without complications; F17.200 Nicotine dependence, unspecified, uncomplicated; Z79.84 Long term (current) use of oral hypoglycemic drugs
CPT/HCPCS: 82947-QW; Q9967

== ENCOUNTER 2018-03-17 13:04 | Emergency (ER) | payer MEDICAID ==
--- NOTE | 2018-03-17 13:32 | EDPHY ---
HPI/HX/ROS/PE/MDM - Data Points Imaging: I viewed and interpreted images myself Narrative: CHIEF COMPLAINT: Ongoing abdominal pain HPI: The patient is a 63 y/o male with a history of diabetes and hypertension arriving with his friends complaining of persistent RUQ pain before and after a cholecystectomy on 12/21/17. He describes months of pain leading up to the cholecystectomy, but has continued to have the same RUQ pain following the surgery. He was on oxycodone after the surgery and is now using Tylenol and ibuprofen for pain without lasting relief. He was admitted at the end of January for the same symptoms after running out of oxycodone. During that admission he preferred to be discharged with one week of narcotics despite encouragement to complete ERCP or CTA to find an etiology for his pain. He describes occasional "stabbing" pain if he "walks too far" or eats "something wrong." His pain improves at rest and at night. He sometimes has an associated back ache. Last episode of vomiting was 3 weeks ago. He denies dark tarry stools. His last follow up with his surgeon, Dr. Sommers, was one month ago. He and his friends at bedside are concerned he has an infection and that he cannot use ibuprofen long- term. Since the pain started 6 months ago, he estimates he has lost approximately 30lbs. REVIEW OF SYSTEMS: Aside from elements discussed in the HPI, a comprehensive 10-point review of systems was reviewed and is negative. PMH: Diabetes type 2, hypertension, recent cholecystectomy 12/21/[address] Sommers SOCIAL HISTORY: Friends at bedside. Lives in [place]. Disabled. Prior medical records reviewed including admission 02/08/18. PHYSICAL EXAM: General:Patient is alert, in no acute distress. ENT:Eyes are normal to inspection. ENT inspection normal. Neck: Normal inspection. Full range of motion. Respiratory:No respiratory distress. Breath sounds normal bilaterally. Cardiovascular: Regular rate and rhythm. Strong peripheral pulses. Normal cap refill. Abdomen:The abdomen has RUQ tenderness to palpation. There are no peritoneal signs. There are normal bowel sounds. Back: Normal to inspection. No tenderness to palpation. Skin: Normal color. No rash. Warm and dry. Extremities: Normal appearance. Full range of motion. Neuro: Oriented x3. Normal motor function. Normal sensory function. (Marcellus Perez) ED Course: This is a 63 y/o male who presents with a 6-month history of chronic RUQ abdominal pain despite cholecystectomy in December. He has RUQ tenderness on exam. Plan for IV, labs, chest x-ray. D-dimer is elevated. 1435: Chest CTA and abdominal CT ordered. 1500: Patient care signed out to Dr. Wahl at shift change pending imaging results. (Marcellus Perez) MDM: 3:50 p.m. the the patient is feeling much better. We discussed his CT and lab results. The after our discussion it seems apparent that he most frequently has these pain episodes after eating fatty meals. Yesterday he ate hot dogs and hamburgers for the holiday. He is now feeling better. I offered admission for ERCP which he declined during his hospitalization in January. He continues to decline this and states that they told him it could cause pancreatitis. He has a nontender abdominal exam right now. We discussed eating less fatty meals and possibly taking bile supplements. I will also refer him to GI. He was also asking for some p.r.n. Vicodin. (Kumar Wahl) - Data Points Imaging Results: Imaging Impressions Chest X-Ray 03/17/18 13:40 Impression: Chronic or recurrent airways disease. No evidence for pneumonia. Abdomen CT 03/17/18 14:34 Impression: 1. No acute intraabdominal process or explanation for right-sided pain. 2. Normal appendix. Moderate constipation. 3. Common bile duct within normal limit for cholecystectomy. Findings discussed with Emergency Department Physician Beverage Host, Marcellus Ramirez PA-C, on March 17, 2018 at 1525. Chest/Thorax CTA 03/17/18 14:34 Impression: 1. No evidence of pulmonary thromboembolic disease. 2. Clear lungs. Chronic mild airways disease, similar to January 2018. Findings discussed with Emergency Department physician assistant chief of police, Marcellus Ramirez PA-C, on March 17, 2018 at 1525. Laboratory Results: Laboratory Results 03/17/18 13:30 03/17/18 13:30 03/17/18 03/17/18 03/17/18 13:46 13:30 13:30 WBC RBC Hgb Hct MCV MCH MCHC RDW Plt Count MPV Neut % (Auto) Lymph % (Auto) [place] % (Auto) Eos % (Auto) Baso % (Auto) Nucleat RBC Rel Count Absolute Neuts (auto) Absolute Lymphs (auto) Absolute Monos (auto) Absolute Eos (auto) Absolute Basos (auto) Absolute Nucleated RBC Immature Gran % Immature Gran # D-Dimer 0.62 ug/mLFEU H ug/mLFEU (0.00-0.50) Sodium 141 mEq/L mEq/L (135-145) Potassium 3.9 mEq/L mEq/L (3.3-5.0) Chloride 104 mEq/L mEq/L (97-110) Carbon Dioxide 23 mEq/l mEq/l (22-31) Anion Gap 14 mEq/L mEq/L (8-16) BUN 18 mg/dL mg/dL (7-23) Creatinine 0.8 mg/dL mg/dL (0.7-1.3) Estimated GFR > 60 Glucose 300 mg/dL H mg/dL (70-100) Calcium 9.5 mg/dL mg/dL (8.5-10.4) Total Bilirubin 0.5 mg/dL mg/dL (0.1-1.4) Conjugated Bilirubin 0.4 mg/dL mg/dL (0.0-0.5) Unconjugated Bilirubin 0.1 mg/dL mg/dL (0.0-1.1) AST 25 IU/L IU/L (17-59) ALT 34 IU/L IU/L (21-72) Alkaline Phosphatase 100 IU/L IU/L (38-126) POC Troponin I 0.01 ng/mL ng/mL (0.00-0.08) Total Protein 6.7 g/dL g/dL (6.3-8.2) Albumin 3.8 g/dL g/dL (3.5-5.0) Lipase 335 IU/L H IU/L (23-300) 03/17/18 13:30 WBC 6.51 10^3/uL 10^3/uL (3.80-9.50) RBC 4.36 10^6/uL L 10^6/uL (4.40-6.38) Hgb 13.2 g/dL L g/dL (13.7-17.5) Hct 39.1 % L % (40.0-51.0) MCV 89.7 fL fL (81.5-99.8) MCH 30.3 pg pg (27.9-34.1) MCHC 33.8 g/dL g/dL (32.4-36.7) RDW 13.5 % % (11.5-15.2) Plt Count 239 10^3/uL 10^3/uL (150-400) MPV 8.4 fL L fL (8.7-11.7) Neut % (Auto) 64.9 % % (39.3-74.2) Lymph % (Auto) 26.3 % % (15.0-45.0) [place] % (Auto) 5.8 % % (4.5-13.0) Eos % (Auto) 2.0 % % (0.6-7.6) Baso % (Auto) 0.8 % % (0.3-1.7) Nucleat RBC Rel Count 0.0 % % (0.0-0.2) Absolute Neuts (auto) 4.23 10^3/uL 10^3/uL (1.70-6.50) Absolute Lymphs (auto) 1.71 10^3/uL 10^3/uL (1.00-3.00) Absolute Monos (auto) 0.38 10^3/uL 10^3/uL (0.30-0.80) Absolute Eos (auto) 0.13 10^3/uL 10^3/uL (0.03-0.40) Absolute Basos (auto) 0.05 10^3/uL 10^3/uL (0.02-0.10) Absolute Nucleated RBC 0.00 10^3/uL 10^3/uL (0-0.01) Immature Gran % 0.2 % % (0.0-1.1) Immature Gran # 0.01 10^3/uL 10^3/uL (0.00-0.10) D-Dimer Sodium Potassium Chloride Carbon Dioxide Anion Gap BUN Creatinine Estimated GFR Glucose Calcium Total Bilirubin Conjugated Bilirubin Unconjugated Bilirubin AST ALT Alkaline Phosphatase POC Troponin I Total Protein Albumin Lipase Point of Care Test Results: Chemistry 03/17/18 13:46 POC Troponin I 0.01 ng/mL ng/mL (0.00-0.08) General Time Seen by Provider: 03/17/18 13:15 Initial Vital Signs: Initial Vital Signs Temperature (C) 36.8 C 03/17/18 13:05 Heart Rate 99 03/17/18 13:05 Respiratory Rate 16 03/17/18 13:05 Blood Pressure 132/82 H 03/17/18 13:05 O2 Sat (%) 95 03/17/18 13:05 O2 Delivery Mode Room Air Allergies/Adverse Reactions: No Known Allergies Allergy (Verified 02/08/18 17:58) Home Medications: Medication Instructions Recorded metFORMIN HCL [Glucophage 1000 mg] 1,000 mg PO BIDMEAL 02/22/16 Cholecalciferol Vit D3 [Vitamin D3 1,000 units PO DAILY 12/21/17 (*)] Gabapentin [Neurontin 300 MG (*)] 300 mg PO BID 12/21/17 Lisinopril [Zestril 10 mg (*)] 10 mg PO BID 02/08/18 Acetaminophen [Tylenol 325mg (*)] 650 mg PO Q6 PRN tab 02/10/18 Polyethylene Glycol 3350 [Miralax 17 gm PO DAILY PRN pkt 02/10/18 17 gm (*)] Sennosides/Docusate Sodium 1 - 2 tab PO BID tab 02/10/18 [Senokot-S] Hydrocodone/APAP 5/325 [[place] 1 - 2 tab PO Q4H PRN #14 tab 03/17/18 5/325 (RX)] Departure - Departure Disposition: Home, Routine, Self-Care Clinical Impression: Epigastric abdominal pain Condition: Fair Instructions: Epigastric Pain (ED) Referrals: NONE *PRIMARY CARE P,. [Primary Care Provider] - As per Instructions Ynoatan Chicas MD [Medical Doctor] - 5-7 days, call for appt. Prescriptions: Hydrocodone/APAP 5/325 [[place] 5/325 (RX)] 1 - 2 tab PO Q4H PRN #14 tab PRN Reason: Pain, Moderate Report Scribed for: Marcellus Perez Report Scribed by: Nataliia Ron Date of Report: 03/17/18 Time of Report: 13:17 Physician Review and Approval Statement: Portions of this note were transcribed by an ED scribe. I personally performed the history, physical exam, and medical decision making; and confirm the accuracy of the information in the transcribed note.
[2018-03-17 13:46] LABS: PLATELET COUNT 239 10^3/uL (150-400)
[2018-03-17] MEDS ORDERED: IOPAMIDOL (ISOVUE 370) 100 ML BTL IV ONE (14:39)
[2018-03-17 16:01] VITALS: BP 125/78
== END 2018-03-17 16:02 | disposition home or self-care (01) ==
LOC: EEVIPCON 13:04
DX: R10.13 Epigastric pain (principal); I10 Essential (primary) hypertension; E11.9 Type 2 diabetes mellitus without complications; Z79.84 Long term (current) use of oral hypoglycemic drugs; Z90.49 Acquired absence of other specified parts of digestive tract
CPT/HCPCS: 84484-PO; Q9967

== ENCOUNTER 2018-05-09 12:54 | Observation (INO) | payer MEDICAID ==
[2018-05-09] MEDS ORDERED: NS 1,000 ML IV ONE ×2 (13:16→13:36)
[2018-05-09 13:25] LABS: PLATELET COUNT 230 10^3/uL (150-400)
--- NOTE | 2018-05-09 13:36 | EDPHY ---
HPI/HX/ROS/PE/MDM Narrative: CHIEF COMPLAINT: "This morning I was trying to black out a bit" HISTORY OF PRESENT ILLNESS: The patient is a 63 y/o male complaining of a near -syncopal event this morning. He describes tunnel vision and feeling like he would pass out while standing today. Upon sitting down symptoms seemed to improve so he then went to shower when symptoms recurred and he had to sit down to avoid passing out. He felt normal yesterday and has been eating and drinking without issue. He denies recent illness or trauma. He is no longer on blood pressure medication. He's had ongoing chronic abdominal pain for several months and was most recently seen here for this on 04/20/18. During that visit labs showed he had a positive H. pylori antibody test and he was discharged on omeprazole, clarithromycin, amoxicillin, and Mylanta. He feels like his abdominal symptoms improved after this treatment course. No fever, chills, chest pain, shortness of breath, palpitations, vomiting, diarrhea, urinary complaints, headache, blood in stool or black stools, testicular pain or swelling. No history of GI bleeds. REVIEW OF SYSTEMS: Aside from elements discussed in the HPI, a comprehensive 10-point review of systems was reviewed and is negative. Patient later reported that he was in a sweat [place] for spiritual ceremony for 4 hr yesterday. 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 Current tobacco use. Vocational Rehabilitation Specialist at bedside. Prior medical records reviewed including ED visits 03/17/18 and 04/20/18 for abdominal pain. VITAL SIGNS: Reviewed by me. BP 79/55. GENERAL: Well-developed, well-nourished, resting comfortably in no respiratory distress. HEENT: Atraumatic. Eyes: No icterus, no injection. Mouth: moist mucous membranes. No erythema or lesions. Neck: supple with no adenopathy. LUNGS: Clear to auscultation bilaterally, no wheezes, rhonchi or rales. CARDIAC: Regular rate and rhythm, no rubs, murmurs or gallops. ABDOMEN: Soft, RUQ tenderness, no guarding or rebound, nondistended, bowel sounds normal. RECTAL: Brown stool, no melena BACK: No CVA tenderness. EXTREMITIES: No trauma. No edema. Range of motion is normal throughout. NEURO: Alert and oriented, grossly nonfocal. SKIN: Warm and dry, no rash. PSYCHIATRIC: Normal mentation, no agitation. Portions of this note were transcribed by a medical payment poster. I personally performed a history, physical exam, medical decision making, and confirmed accuracy of information the transcribed note. ED Course: This is a 63 y/o male with a history of diabetes and chronic abdominal pain who presents with near-syncopal episodes this morning and hypotension here. BP in triage is 74/54. He has RUQ tenderness that is baseline for him and an otherwise unremarkable exam. No melena on rectal exam. Plan for IV, labs, EKG, chest x-ray, 2L IV NS. The 12 lead EKG was interpreted by myself. Sinus tachycardia rate 104. See hard copy and/or "tracemaster" electronic copy for interpretation. Chest x-ray: stable COPD. Creatinine elevated at 2.0. Negative POC Troponin. Occult stool is negative. H& H are normal. Patient has a lactic of 2.3. He has evidence of infection or septicemia. This was not ordered as part of the septicemia workup. Patient did received 2 L of normal saline. Spoke with hospitalist service. Patient will be admitted for ongoing hydration , re-evaluation of his elevated creatinine, and serial troponins. Dr. Esteban accepts admission. MDM: Differential diagnoses for the patient's symptom complex was considered including but not limited to dehydration, anemia, GI bleeding, acute blood loss , sepsis, septic shock. - Data Points Imaging Results: Imaging Impressions Chest X-Ray 05/09/18 13:39 Impression: Stable COPD/airways disease. Imaging: I viewed and interpreted images myself Laboratory Results: Laboratory Results 05/09/18 13:12 05/09/18 13:12 05/09/18 05/09/18 05/09/18 13:30 13:17 13:12 WBC RBC Hgb Hct MCV MCH MCHC RDW Plt Count MPV Neut % (Auto) Lymph % (Auto) [place] % (Auto) Eos % (Auto) Baso % (Auto) Nucleat RBC Rel Count Absolute Neuts (auto) Absolute Lymphs (auto) Absolute Monos (auto) Absolute Eos (auto) Absolute Basos (auto) Absolute Nucleated RBC Immature Gran % Immature Gran # Sodium Potassium Chloride Carbon Dioxide Anion Gap BUN Creatinine Estimated GFR Glucose Calcium Total Bilirubin 0.5 mg/dL mg/dL (0.1-1.4) Conjugated Bilirubin 0.1 mg/dL mg/dL (0.0-0.5) Unconjugated Bilirubin 0.4 mg/dL mg/dL (0.0-1.1) AST 26 IU/L IU/L (17-59) ALT 28 IU/L IU/L (21-72) Alkaline Phosphatase 107 IU/L IU/L (38-126) POC Troponin I 0.01 ng/mL ng/mL (0.00-0.08) Total Protein 7.4 g/dL g/dL (6.3-8.2) Albumin 4.2 g/dL g/dL (3.5-5.0) Lipase 251 IU/L IU/L (23-300) Stool Occult Bld Scrn NEGATIVE (NEGATIVE) 05/09/18 05/09/18 13:12 13:12 WBC 7.42 10^3/uL 10^3/uL (3.80-9.50) RBC 4.86 10^6/uL 10^6/uL (4.40-6.38) Hgb 14.7 g/dL g/dL (13.7-17.5) Hct 42.9 % % (40.0-51.0) MCV 88.3 fL fL (81.5-99.8) MCH 30.2 pg pg (27.9-34.1) MCHC 34.3 g/dL g/dL (32.4-36.7) RDW 13.2 % % (11.5-15.2) Plt Count 230 10^3/uL 10^3/uL (150-400) MPV 8.4 fL L fL (8.7-11.7) Neut % (Auto) 59.5 % % (39.3-74.2) Lymph % (Auto) 28.4 % % (15.0-45.0) [place] % (Auto) 7.7 % % (4.5-13.0) Eos % (Auto) 3.4 % % (0.6-7.6) Baso % (Auto) 0.7 % % (0.3-1.7) Nucleat RBC Rel Count 0.0 % % (0.0-0.2) Absolute Neuts (auto) 4.42 10^3/uL 10^3/uL (1.70-6.50) Absolute Lymphs (auto) 2.11 10^3/uL 10^3/uL (1.00-3.00) Absolute Monos (auto) 0.57 10^3/uL 10^3/uL (0.30-0.80) Absolute Eos (auto) 0.25 10^3/uL 10^3/uL (0.03-0.40) Absolute Basos (auto) 0.05 10^3/uL 10^3/uL (0.02-0.10) Absolute Nucleated RBC 0.00 10^3/uL 10^3/uL (0-0.01) Immature Gran % 0.3 % % (0.0-1.1) Immature Gran # 0.02 10^3/uL 10^3/uL (0.00-0.10) Sodium 135 mEq/L mEq/L (135-145) Potassium 4.8 mEq/L mEq/L (3.3-5.0) Chloride 98 mEq/L mEq/L (97-110) Carbon Dioxide 23 mEq/l mEq/l (22-31) Anion Gap 14 mEq/L mEq/L (8-16) BUN 36 mg/dL H mg/dL (7-23) Creatinine 2.0 mg/dL H mg/dL (0.7-1.3) Estimated GFR 34 Glucose 126 mg/dL H mg/dL (70-100) Calcium 9.8 mg/dL mg/dL (8.5-10.4) Total Bilirubin Conjugated Bilirubin Unconjugated Bilirubin AST ALT Alkaline Phosphatase POC Troponin I Total Protein Albumin Lipase Stool Occult Bld Scrn Medications Given: Acetaminophen (Tylenol) 650 mg PO Q4HRS PRN PRN Reason: Pain, Mild/Fever, Can Take PO Stop: 11/05/18 14:38 Last Admin: 05/09/18 16:54 Dose: 650 mg Sodium Chloride (Ns) 1,000 mls @ 100 mls/hr IV CONT WEST Stop: 05/10/18 01:29 Last Admin: 05/09/18 16:06 Dose: 1,000 mls Discontinued Medications Sodium Chloride (Ns) 1,000 mls @ 0 mls/hr IV ONCE ONE; Wide Open PRN Reason: Protocol Stop: 05/09/18 13:17 Last Admin: 05/09/18 13:21 Dose: 1,000 mls Sodium Chloride (Ns) 1,000 mls @ 0 mls/hr IV EDNOW ONE; Wide Open PRN Reason: Protocol Stop: 05/09/18 13:37 Last Admin: 05/09/18 13:44 Dose: 1,000 mls Point of Care Test Results: Chemistry 05/09/18 13:17 POC Troponin I 0.01 ng/mL ng/mL (0.00-0.08) General Time Seen by Provider: 05/09/18 13:02 Initial Vital Signs: Initial Vital Signs Temperature (C) 36.6 C 05/09/18 12:56 Heart Rate 108 H 05/09/18 12:56 Respiratory Rate 18 05/09/18 12:56 Blood Pressure 74/54 L 05/09/18 12:56 O2 Sat (%) 95 05/09/18 12:56 O2 Delivery Mode Room Air Allergies/Adverse Reactions: No Known Allergies Allergy (Verified 05/09/18 14:58) Home Medications: Medication Instructions Recorded metFORMIN HCL [Glucophage 1000 mg] 1,000 mg PO BIDMEAL 02/22/16 Gabapentin [Neurontin 300 MG (*)] 300 mg PO HS 12/21/17 Lisinopril [Zestril 10 mg (*)] 5 mg PO DAILY 05/09/18 glipiZIDE [Glipizide] 10 mg PO BIDAC 05/09/18 Departure - Departure Disposition: [facility] Acute Clinical Impression: Renal failure Qualifiers: Renal failure chronicity: acute Acute renal failure type: unspecified Qualified Code(s): N17.9 - Acute kidney failure, unspecified Hypotension Qualifiers: Hypotension type: unspecified hypotension type Qualified Code(s): I95.9 - Hypotension, unspecified Condition: Fair Report Scribed for: Lindy Connolly Report Scribed by: Nataliia Ron Date of Report: 05/09/18 Time of Report: 13:42
[2018-05-09] MEDS ORDERED: ONDANSETRON DISINTEGRATING 4 MG TAB PO PRN (14:39)
[2018-05-09] MEDS ORDERED: ONDANSETRON 4 MG/2 ML VIAL IVP PRN (14:39)
[2018-05-09] MEDS ORDERED: D50W 25 GM/50 ML SYR IVP PRN (14:51)
[2018-05-09] MEDS ORDERED: NS 1,000 ML IV SCH (15:30)
--- NOTE | 2018-05-09 15:56 | GHP ---
[f rep st] HISTORY AND PHYSICAL DATE OF ADMISSION: 05/09/2018 CHIEF COMPLAINT: Presyncope. HISTORY OF PRESENT ILLNESS: A 63-year-old male with diabetes, hypertension, recent cholecystectomy i n December, presenting with presyncope. 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 He did not drink very much water. This morning, he felt a s though he was going to black out but did not lose consciousness. He was driving his grandson and g irlfriend to work, when he got back in the car, felt dizzy again. He did not have prodromal chest pa in, palpitation, shortness of breath or sweats. No nausea, vomiting or diarrhea. He had sweats the other night. He complains of chronic right upper quadrant pain since his cholecystectomy. It is int ermittent, related to food. He says he has been avoiding red meat and fatty foods. REVIEW OF SYSTEMS: I completed a 10-point review of systems, negative except as noted in HPI. PAST MEDICAL HISTORY: Diabetes, hypertension. PAST SURGICAL HISTORY: Cholecystectomy December 2017, liver biopsy in 1998. SOCIAL HISTORY: Lives in [place] with his son. Tobacco: A pack a day for 36 years. Denies alcohol . FAMILY HISTORY: Alcoholism. ALLERGIES: None. HOME MEDICATIONS: Glipizide 10 mg b.i.d., gabapentin 300 mg q.h.s., lisinopril 5 mg daily, metformin 1000 mg b.i.d. PHYSICAL EXAMINATION: VITAL SIGNS: Temperature 36.6, blood pressure 74/54 at admission, now 108/68 after fluids, heart rate 108, now 82, respirations 20, 100% on room air. GENERAL: He is tired but n o acute distress. HEENT: Mildly dry mucous membranes. CV: Regular rate and rhythm. LUNGS: Clear anteriorly. ABDOMEN: Soft, nondistended, tenderness over right upper quadrant, pain with minimal t ouch but no rebound or guard. Positive bowel sounds. : No Sullivan. MUSCULOSKELETAL: 5/5 upper an d lower extremity strength. NEURO: 2 through 12 intact. PSYCH: Alert and oriented x3. LABS: WBC 7, hemoglobin 14, hematocrit 42, platelets 230. Lactate is 2.3. Sodium is 135, potassium 4.8, chloride 98, carbon dioxide 23, BUN 36, creatinine 2 (baseline 0.81), glucose 126, calcium 9.8. LFTs within normal. Troponin 0.01. EKG was personally reviewed by me, LVH, tachycardia. Chest x-ray was personally reviewed by me, hyperexpanded, no effusion or opacity. ASSESSMENT AND PLAN: 1. 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 Will hydrate with IV fluids, recheck in the morning. UA and lytes are pe nding. 2. Hypertension: Hold lisinopril with acute kidney injury. 3. Chronic abdominal pain: Persistent after his cholecystectomy. No evidence of infection. He has been here in the hospital with similar complaints in the past. At last admission, he was offered fu rther evaluation but declined. Per review of clinic notes, Dr. Sommers evaluated the patient and no fu rther workup warranted. Continue gabapentin but renally dose. Will not give narcotics. 4. Diabetes: Hold orals. Sliding scale insulin here. 5. Tobacco abuse: Nicotine patch. 6. Deep venous thrombosis prophylaxis: Subcu heparin. 7. Diet: Regular. DISPOSITION: Observation admission for YANA, IV fluids. Can likely be seen in the morning. /[id number]/MODL
[2018-05-09] MEDS: ACETAMINOPHEN 325 MG TAB PO PRN ×2 (16:54→21:05)
[2018-05-09] MEDS: metFORMIN HCL 500 MG TAB PO SCH (18:39)
[2018-05-09] MEDS: INSULIN LISPRO 100 UNIT/ML SC SCH (18:39)
--- NOTE | 2018-05-09 20:59 | CPEKG ---
Test Reason : OPEN Blood Pressure : / mmHG Vent. Rate : 104 BPM Atrial Rate : 104 BPM P-R Int : 144 ms QRS Dur : 087 ms QT Int : 346 ms P-R-T Axes : 064 062 063 degrees QTc Int : 455 ms Sinus tachycardia Consider left ventricular hypertrophy Confirmed by Eddy Sutherland ([id number]) on 05/09/2018 8:58:57 PM Referred By: Confirmed By:Eddy Sutherland
[2018-05-09] MEDS ORDERED: GABAPENTIN 100 MG CAP PO SCH (21:00)
[2018-05-09] MEDS: HEPARIN 5,000 UNIT/0.5 ML INJ SC SCH (21:07)
[2018-05-10 02:34] VITALS: BP 128/76
[2018-05-10] MEDS: ACETAMINOPHEN 325 MG TAB PO PRN ×2 (02:34→07:37)
[2018-05-10] MEDS: HEPARIN 5,000 UNIT/0.5 ML INJ SC SCH (05:15)
[2018-05-10] MEDS: metFORMIN HCL 500 MG TAB PO SCH (07:38)
[2018-05-10] MEDS: INSULIN LISPRO 100 UNIT/ML SC SCH (07:55)
[2018-05-10] MEDS ORDERED: KETOROLAC 15 MG/1 ML SDV IVP ONE (09:52)
--- NOTE | 2018-05-10 13:46 | GDS ---
[f rep st] DISCHARGE SUMMARY DISCHARGE DIAGNOSES: 1. Acute kidney injury. 2. Dehydration. 3. History of hypertension. 4. Chronic abdominal pain. PHYSICAL EXAM: GENERAL: The patient is alert. VITAL SIGNS: Afebrile at 36.6, pulse is 98, respira tory rate is 18, blood pressure is 128/76. He is saturating 97% on room air. I have seen evaluated the patient on the day of discharge. HOSPITAL COURSE: The patient is a 63-year-old male who presented to the emergency room with complain ts of feeling lightheaded. He was evaluated and diagnosed with acute kidney injury secondary to dehy dration. He responded well to IV fluids during this hospitalization. His renal function has returne d to normal and he will be discharged home. Of note, the patient has a history of complaining of chr onic abdominal pain. He does have some narcotic-seeking behaviors and has an appointment to follow u jose alfredo with [facility] on 05/18/2018, for further evaluation of his chronic abdominal pain. He will not be discharged home on any narcotic medications nor was he given any during this h ospitalization. DISCHARGE MEDICATIONS: Please refer to EMR form. I have not provided any prescriptions for the deon ent at the time of disposition and continued all of his previously prescribed home medications. /[id number]/MODL
== END 2018-05-10 10:56 | disposition home or self-care (01) ==
LOC: F3E 15:34
PROVIDERS: ADMIT Internal Medicine; ATTEND Internal Medicine
DX: N17.9 Acute kidney failure, unspecified (principal); E86.0 Dehydration; I10 Essential (primary) hypertension; I95.9 Hypotension, unspecified; R10.9 Unspecified abdominal pain; E11.9 Type 2 diabetes mellitus without complications; J44.9 Chronic obstructive pulmonary disease, unspecified; Z90.49 Acquired absence of other specified parts of digestive tract
CPT/HCPCS: 71046; 93005; 96360; 96361; 96374; 99285; G0378; 84484-PO; J1644; J1885

== ENCOUNTER 2019-02-06 12:43 | Emergency (ER) | payer MEDICAID ==
--- NOTE | 2019-02-06 13:33 | EDPHY ---
HPI/HX/ROS/PE/MDM Narrative: CHIEF COMPLAINT: Abscess on buttock HPI: This patient is a 64-year-old male with history of type 2 diabetes and hypertension. He complains today of an abscess inner right buttock there for three weeks. He initially thought it was getting better on its own, but it has become larger and more painful in the last few days. It has not drained spontaneously. He is otherwise asymptomatic, no fever, no complaints of systemic infection. He does have history of I&D procedures for abscesses in the past. REVIEW OF SYSTEMS: A comprehensive 10 system review of systems is otherwise negative aside from elements mentioned in the history of present illness and medical decision making. PMH: Diabetes type 2 (metformin, glipizide), Hypertension. Cholecystectomy. TB ( latent) SOCIAL HISTORY: Friend at bedside. Single. Lives in [place]. PHYSICAL EXAM: General: Patient is alert, in no acute distress. Right buttock: 4cm diameter abscess to inner right buttock. No erythema, warmth , streaking, or discharge. Neuro: Oriented x3. Normal motor function. Normal sensory function ED Course: 64 y/o male presents with an abscess to his lower right inner buttock area, present for the past three weeks. Plan for incision and drainage. 13:48 Procedure: Incision and Drainage abscess. The patient's abscess was located on the right buttock. Risks, benefits, alternatives discussed with the patient and consent obtained. The area was prepped and draped in sterile fashion. The patient received local anesthesia with 1% lidocaine with epinephrine. The abscess was incised with a #11 blade and purulent drainage was expressed. The wound was irrigated and packed with 1/4 " iodoform packing. The patient tolerated the procedure well. The procedure was performed by myself. Plan to discharge patient home in good condition. Antibiotics are not needed at this time; there is no evidence of cellulitis or systemic infection. He will be reassessed carefully when he returns for packing removal in 48-72 hours. Follow up and return precautions discussed. He is comfortable with this plan. General Time Seen by Provider: 02/06/19 13:31 Initial Vital Signs: Initial Vital Signs Temperature (C) 37 C 02/06/19 13:08 Heart Rate 93 02/06/19 13:08 Respiratory Rate 16 02/06/19 13:08 Blood Pressure 129/75 H 02/06/19 13:08 O2 Sat (%) 97 02/06/19 13:08 O2 Delivery Mode Room Air Allergies/Adverse Reactions: No Known Allergies Allergy (Verified 02/06/19 13:08) Home Medications: Medication Instructions Recorded metFORMIN HCL [Glucophage 1000 mg] 1,000 mg PO BIDMEAL 02/22/16 Gabapentin [Neurontin 300 MG (*)] 300 mg PO HS 12/21/17 Lisinopril [Zestril 10 mg (*)] 5 mg PO DAILY 05/09/18 glipiZIDE [Glipizide] 10 mg PO BIDAC 05/09/18 Acetaminophen [Tylenol 325mg (*)] 650 mg PO Q4HRS PRN tab 05/10/18 Departure - Departure Disposition: Home, Routine, Self-Care Clinical Impression: Abscess of buttock, right Condition: Good Instructions: Abscess (ED) Additional Instructions: Please return to the emergency department or follow up with your primary care provider in 48-72 hours for packing removal. Keep the area clean and dry. You may shower with the packing. Please replace a clean dressing following this. Return to the Emergency Department for fever, redness, increased discharge from wound (some drainage will be expected as we discussed), increasing pain or other worsening of condition. Referrals: Tamy Marrero MD [Medical Doctor] - As per Instructions Report Scribed for: Marcellus Perez Report Scribed by: Esha Hollins Date of Report: 02/06/19 Time of Report: 13:32 Physician Review and Approval Statement: Portions of this note were transcribed by an ED scribe. I personally performed the history, physical exam, and medical decision making; and confirm the accuracy of the information in the transcribed note.
[2019-02-06 14:14] VITALS: BP 128/73
== END 2019-02-06 14:13 | disposition home or self-care (01) ==
PROC: 0H98XZZ Drainage of Buttock Skin, External Approach (ICD-10-PCS; principal; 2019-02-06)
DX: L02.31 Cutaneous abscess of buttock (principal)